=== PATIENT | female | born 1950 | race Caucasian/White ===

== ENCOUNTER 2016-11-29 09:43 | Day surgery (SDC) | payer SELFPAY ==
[~2016-11-29] VITALS: Ht 154.9 cm; Wt 68.0 kg
[2016-11-29] VITALS (11 sets, daily range): BP systolic 112–150; BP diastolic 69–90
[~2016-11-29 09:43] MED LIST: ALBUTEROL SULF8.5 GM INH; ALBUTEROL2.5 MG/3 M HHN; ASPIRIN-LOW81 MG ORAL; AZITHROMYCIN250 MG ORAL; CLOZARIL100 MG ORAL; DEPAKOTE ER500 MG ORAL; DITROPAN10 MG ORAL; FOSAMAX70 MG ORAL; LINZESS290 MCG PO; MIRALAX17 GM ORAL; OYSTER SHELL C500 MG PO; PREDNISONE20 MG ORAL; PROTONIX40 MG ORAL; PROZAC40 MG ORAL; Proparacaine 0.5% Opth Soln 15ml RIGHT EYE ONE; ROBITUSSIN DM5 ML ORAL; VITAMIN B-12500 MCG IM; VITAMIN D310000 UNIT PO; VITAMIN D35000 UNIT PO
[2016-11-29] MEDS ORDERED: Cyclopentolate 1% Opth Sol ONE (10:00)
[2016-11-29] MEDS ORDERED: Tropicamide 1% Opth Soln ONE (10:00)
[2016-11-29] MEDS ORDERED: Phenylephrine 2.5% Op Soln ONE (10:00)
[2016-11-29] MEDS ORDERED: Proparacaine 0.5% Opth Soln 15ml ONE (10:02)
[2016-11-29] MEDS: Tropicamide 1% Opth Soln RIGHT EYE SCH ×3 (10:43→11:08)
[2016-11-29] MEDS: Phenylephrine 2.5% Op Soln RIGHT EYE SCH ×3 (10:43→11:08)
[2016-11-29] MEDS: Cyclopentolate 1% Opth Sol RIGHT EYE SCH ×3 (10:44→11:08)
[2016-11-29] MEDS ORDERED: CALCIUM CITRAT250 M1 PO (11:16)
[2016-11-29 11:25] LABS: ANION GAP 15 (5-15); CARBON DIOXIDE 23 mEQ/L (20-30); CHLORIDE 96 mEQ/L (98-107); CREATININE 0.6 mg/dL (0.5-0.9); GLOMERULAR FILTRATION RATE > 60 mL/min (>60); HEMOLYSIS 9; POTASSIUM 4.2 mEQ/L (3.4-4.9); SODIUM 134 mEQ/L (135-145)
--- NOTE | 2016-11-29 11:58 | Pre-Procedure Note/Attestation ---
Pre-Procedure Note/Attestation Complete Prior to Procedure Planned Procedure: right Indications for Procedure Pre-Operative Diagnosis: Patient with total retinal detachment presents for surgical repair. Attestation I attest that I discussed the nature of the procedure; its benefits; risks and complications; and alternatives (and the risks and benefits of such alternatives ), prior to the procedure, with the patient (or the patient's legal novelties sales representative). I attest that, if there was a reasonable possibility of needing a blood transfusion, the patient (or the patient's legal novelties sales representative) was given the [facility] standardized written summary, pursuant to the Nick Flory Blood Safety Act ([place] Health and Safety Code # 1645, as amended). I attest that I re-evaluated the patient just prior to the surgery and that there has been no change in the patient's H&P, except as documented below: Piter Santos M.D. Nov 29, 2016 11:58
--- NOTE | 2016-11-29 12:01 | Operative Note - PDOC ---
Operative Note Operative Note Chief Complaint: Vision loss OD Pre-op Diagnosis: Patient with total retinal detachment presents for surgical repair. Procedure: PPV/MP/PFO/EL/AFE/C3F8 gas OD Post-op Diagnosis: Total retinal detachment with PVR, right eye Surgeon: Tom Anesthesia: general Specimen: none Complications: none Condition: stable Estimated Blood Loss: minimal Drains: none Implant(s) used?: No Indications for Procedure Indications for the procedure: The patient has vision loss due macula involving, long-standing retinal detachment of the right eye. She presents today for surgery after review of the risks, benefits, alternative and signing informed consent into the medical chart along with her POW. Description of Procedure Procedure performed: The patient was met in the pre-operative area where informed consent was reviewed. The operative eye was verified, marked and dilated. The patient was transferred to the operative suite, where cardiopulmonary monitoring was established and general anesthetic was administered without complications. The eye was prepped and draped in sterile ophthalmic fashion. Under microscope visualization the 25 gauge infusion line was placed 3.5 millimeters inferotemporally. After visualization of the tip in the vitreous cavity, the infusion line was turned on. The superotemporal and superonasal cannulas were placed. Under BIOM visualization, peripheral and core vitrectomy was performed. Of note , there was significant vitreo-retinal traction and adhesion noted to the posterior pole and the periphery. Kenalog was used to stain the hyloid and the vitreous was shaved extensively along areas of pre-retinal pigment formation inferiorly along the vitreous base. The corneal epithelium was removed to improve visualization. ICG was used to stain the posterior pole and the ILM was peeled with forceps. The retina relaxed significantly and drainage of the subretinal fluid was performed. PFO was used to reattach the posterior pole. Further peripheral vitreous shaving was performed. PFO was infused to reattached the entire retina. Laser was applied to the peripheral retinal tears and 360 retinopexy was performed to reinforce areas of retinal thinning and areas of early PVR formation. Air fluid exchange was performed and the PFO was removed completely. C3F8 gas was infused into the eye. The cannulas were removed and the sclerotomies were sutured. The eye maintained normal intraocular pressure. Subconjunctival vancomycin and dexamethasone were administered. The lid speculum was removed. The eye was cleaned of prep and drape. Atropine drop and Maxitrol ointment was applied. A pressure patch was placed. The patient was turned over to the anesthesia team and transferred in stable condition to the PACU. Piter Santos M.D. Nov 29, 2016 12:01
--- NOTE | 2016-11-29 12:01 | Brief Operative Note ---
Immediate Post Operative Note Operative Note Pre-op Diagnosis: Patient with total retinal detachment presents for surgical repair. Procedure: PPV/MP/PFO/EL/AFE/C3F8 gas OD Post-op Diagnosis: Total retinal detachment with PVR, right eye Surgeon: Tom Anesthesia: general Specimen: none Complications: none Condition: stable Estimated Blood Loss: minimal Drains: none Implant(s) used?: Yes - Piter Ortiz M.D. Nov 29, 2016 12:01
[2016-11-29] MEDS ORDERED: Maxitrol Opth Oint 3.5gm ONE (12:17)
[2016-11-29] MEDS ORDERED: Dexamethasone 4mg/ml vial ONE (12:17)
[2016-11-29] MEDS ORDERED: BSS 500ml btl ONE (12:17)
[2016-11-29] MEDS ORDERED: Kenalog-40 1ml Vial ONE (12:17)
[2016-11-29] MEDS ORDERED: Tetracaine 0.5% Opth Soln ONE (12:17)
[2016-11-29] MEDS ORDERED: Pred Forte 1% Opth Susp 1ml ONE (12:17)
[2016-11-29] MEDS ORDERED: Goniosol 2.5% Opth Soln - 15ml ONE (12:18)
[2016-11-29] MEDS ORDERED: BSS 15ml BTL ONE (12:18)
[2016-11-29] MEDS ORDERED: Lidocaine 2% MPF 5ml Vial INJ ONE (12:18)
[2016-11-29] MEDS ORDERED: Bupivacaine 0.75% 30ml vial INJ ONE (12:18)
[2016-11-29] MEDS ORDERED: Povidone-Iodine 5% opth solution ONE (12:18)
[2016-11-29] MEDS ORDERED: NS Irrig 1000ml ONE (12:45)
[2016-11-29] MEDS ORDERED: Midazolam 2mg/2ml Inj ONE (12:45)
[2016-11-29] MEDS ORDERED: Ketorolac 30mg Inj ONE (12:45)
[2016-11-29] MEDS ORDERED: fentaNYL 100 mcg/2 mL IV ONE (12:45)
[2016-11-29] MEDS ORDERED: LR 1000ml ONE (12:45)
[2016-11-29] MEDS ORDERED: Propofol 10mg/ml 20ml IV ONE (12:45)
[2016-11-29] MEDS ORDERED: Sterile Water Irrig 1000ml IRRIG ONE (12:45)
[2016-11-29] MEDS ORDERED: Indocyanine Green 25mg Inj INJ ONE (13:30)
[2016-11-29] MEDS ORDERED: Neosporin Oph Soln 5ml Btl ONE (13:44)
[2016-11-29] MEDS ORDERED: fentaNYL 100 mcg/2 mL IV PRN (13:45)
[2016-11-29] MEDS ORDERED: DiphenhydrAMINE 50mg/ml Inj IVP PRN (13:45)
[2016-11-29] MEDS ORDERED: LR 1000ml 1,000 ML IVLG SCH (13:45)
--- NOTE | 2016-11-29 13:45 | Anethesia Preoperative Eval ---
Anesthesia Pre-op PMH/ROS General Date of Evaluation: Nov 29, 2016 Time of Evaluation: 12:42 Anesthesiologist: swapna ASA Score: ASA 3 Mallampati Score Class I : Soft palate, uvula, fauces, pillars visible Class II: Soft palate, uvula, fauces visible Class III: Soft palate, base of uvula visible Class IV: Only hard plate visible Mallampati Classification: Class II Surgeon: Tom Diagnosis: R eye retinal detouchment Surgical Procedure: R eye PPV membrane peel Anesthesia History: none Family History: no anesthesia problems Allergies: Coded Allergies: NO KNOWN ALLERGIES (Unverified Allergy, Unknown, 05/17/15) Medications: see eMAR Past Medical History Cardiovascular: Denies: CAD, HTN, [place], arrhythmia, other, valve dz Pulmonary: Reports: asthma - mild Gastrointestinal/Genitourinary: Reports: GERD, Denies: CRI, ESRD, other Neurologic/Psychiatric: Reports: depression/anxiety, other - schizophrenia? Endocrine: Denies: DM, hypothyroidism, other, steroids HEENT: Reports: cataract (L), cataract (R), Denies: OSAGE (L), OSAGE (R), glaucoma, other Hematology/Immune: Reports: anemia, Denies: DVT, bleeding disorder, other Musculoskeletal/Integumentary: Denies: DDD, DJD, OA, RA, edema, other PMH Narrative: as above PSxH Narrative: R mastectomy, cataracts Anesthesia Pre-op Phys. Exam Physician Exam Last Vital Signs Date Time Temp Pulse Resp B/P Pulse Ox O2 Delivery O2 Flow Rate FiO2 11/29/16 10:54 97.9 58 18 120/74 93 Constitutional: NAD Neurologic: other - unable to obtaine Cardiovascular: RRR Respiratory: CTA Gastrointestinal: S/NT/ND Airway Exam Mallampati Score: Class III MO: limited Neck: stff ROM: limited Teeth: missing Dentures: no lower, no upper Anesthesia Pre-op A/P Labs Chemistry Test 11/29/16 10:45 Sodium Level 134 mEQ/L (135-145) L Potassium Level 4.2 mEQ/L (3.4-4.9) Chloride Level 96 mEQ/L (98-107) L Carbon Dioxide Level 23 mEQ/L (20-30) Anion Gap 15 (5-15) Blood Urea Nitrogen 13 mg/dL (7-23) Creatinine 0.6 mg/dL (0.5-0.9) Estimat Glomerular Filtration Rate > 60 mL/min (>60) Glucose Level 87 mg/dL (74-106) Calcium Level 9.0 mg/dL (8.6-10.2) Studies Pre-op Studies: EKG - NSR Risk Assessment & Plan Assessment: ASA 3 Plan: GA with LMA surgeon request Status Change Before Surgery: No Pre-Antibiotics Drug: none SARATH YATES M.D. Nov 29, 2016 13:45
--- NOTE | 2016-11-29 15:07 | Immediate Post-Op Evaluation ---
Immediate Post-Op Evalulation Immediate Post-Op Evalulation Procedure: R eye PPV fluid to gas exchange laser treatment Date of Evaluation: Nov 29, 2016 Time of Evaluation: 15:06 IV Fluids: 500 Blood Products: none Estimated Blood Loss: min Urinary Output: none Blood Pressure Systolic: 150 Blood Pressure Diastolic: 90 Pulse Rate: 62 Respiratory Rate: 20 O2 Sat by Pulse Oximetry: 98 Temperature (Fahrenheit): 97.4 Pain Score (1-10): 2 Nausea: No Vomiting: No Complications none Patient Status: reacts, patent, none Hydration Status: adequate SARATH YATES M.D. Nov 29, 2016 15:07
[2016-11-30 08:00] VITALS: BP 116/52
--- NOTE | 2016-11-30 08:00 | 48 Hour Post Anesthesia Eval ---
Post Anesthesia Evaluation Procedure: R eye PPV fluid to gas exchange laser treatment Date of Evaluation: Nov 29, 2016 Time of Evaluation: 15:25 Blood Pressure Systolic: 116 0: 52 Pulse Rate: 77 Respiratory Rate: 20 Temperature (Fahrenheit): 97.6 O2 Sat by Pulse Oximetry: 98 Airway: patent Nausea: No Vomiting: No Pain Intensity: 2 Hydration Status: adequate Cardiopulmonary Status: stable Mental Status/LOC: patient returned to baseline Follow-up Care/Observations: n/a Post-Anesthesia Complications: none Follow-up care needed: ready to discharge SARATH YATES M.D. Nov 30, 2016 08:00
== END 2016-11-29 17:30 | disposition home or self-care (01) ==
LOC: SUR 09:43
DX: H33.001 Unspecified retinal detachment with retinal break, right eye (principal); F42.9 Obsessive-compulsive disorder, unspecified; F32.9 Major depressive disorder, single episode, unspecified; F20.9 Schizophrenia, unspecified; F41.9 Anxiety disorder, unspecified; R33.9 Retention of urine, unspecified; J45.909 Unspecified asthma, uncomplicated; R00.1 Bradycardia, unspecified; D64.9 Anemia, unspecified; Z85.3 Personal history of malignant neoplasm of breast; Z90.11 Acquired absence of right breast and nipple
CPT/HCPCS: 36415; 67113; 80048; 93005; J1100; J1885; J2250; J2704; J3010; J3301; J3370; J3490; J7120; 94003; 94150